=== PATIENT | male | born 1970 | race Caucasian/White ===

== ENCOUNTER 2016-06-11 22:15 | Emergency (ER) | payer SELFPAY ==
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
[2016-06-11] MEDS ORDERED: IBUPROFEN 800 MG TABLET PO ONE (23:31)
[2016-06-11] MEDS ORDERED: OXYCODONE-ACETAMINOPHEN 5-325 MG TABLET PO ONE (23:31)
[2016-06-11] MEDS ORDERED: LIDOCAINE 5% (700 MG) TRANSDERMAL ADH..PATCH TP ONE (23:32)
[2016-06-11] MEDS ORDERED: HYDROMORPHONE HCL INJ/PF 2 MG/ML AMPULE IV ONE (23:36)
[2016-06-11] MEDS ORDERED: KETOROLAC TROMETHAMINE INJ/PF 30 MG/1 ML SDV IV ONE (23:36)
[2016-06-11] MEDS ORDERED: KETAMINE HCL INJ 500 MG/10 ML VIAL IV ONE (23:56)
[2016-06-11] MEDS ORDERED: NORMAL SALINE 1000 ML 1,000 ML IV ONE (23:56)
[2016-06-12 01:19] VITALS: BP 114/86
== END 2016-06-12 01:00 | disposition home or self-care (01) ==
LOC: ER 22:15
DX: S22.42XA Multiple fractures of ribs, left side, initial encounter for closed fracture (principal); Y35.813A Legal intervention involving manhandling, suspect injured, initial encounter; F11.20 Opioid dependence, uncomplicated; R00.0 Tachycardia, unspecified; R06.82 Tachypnea, not elsewhere classified; E11.9 Type 2 diabetes mellitus without complications; F17.200 Nicotine dependence, unspecified, uncomplicated
CPT/HCPCS: 99284; 96374; 96375; 71010; J3490; J1885; J1170; J7030